=== PATIENT | female | born 1950 | race Caucasian/White ===

== ENCOUNTER → 2016-06-30 | Outpatient (CLI) | payer BC ==
[~2016-06-30] MED LIST: ADV100INH INH; HYDR25TAB PO; MULTCAP PO; PROA1AER INH; TUDO1AER2 INH; VITA-115 PO; [UNRECOGNIZED DRUG - OTHER] PO
--- NOTE | 2016-06-30 12:54 | REP ---
CT study of the chest without contrast: History: COPD. Comparison chest CT study is from May 08, 2015. Comparison PET/CT study is from November 23, 2014. Findings: Multinodular thyroid changes are again seen status quo. There are advanced emphysematous changes throughout the upper lobes. There is an area of chronic linear fibrosis in the left upper lobe without evidence of mass lesion. No hilar or mediastinal mass lesion is observed. No other pulmonary nodule or mass lesion has developed. There are moderate emphysematous changes in the lower lobes as well. No mediastinal adenopathy is seen. Ascending aorta measures 5.0 cm in greatest AP dimension, previously 4.6 cm by my measurement on May 08, 2015. Vascular calcification is seen. No other aortic dilation noted. There are several hepatic cysts again visualized unchanged. No adrenal lesion is seen. Visualized upper abdominal structures are otherwise unremarkable. No pleural or pericardial effusions seen. Impression: 1. Severe COPD. Chronic linear fibrosis left upper lobe. 2. Ascending aorta shows progressive dilation 5.0 cm today. 3. Stable hepatic cysts. 4. Stable multinodular thyroid. Signed by Salinas Stanley MD 06/30/2016 01:26 P
== END ==
LOC: M RAD 08:28
PROVIDERS: ATTEND Internal Medicine Pulmonary Disease
DX: J44.9 Chronic obstructive pulmonary disease, unspecified (principal); K76.89 Other specified diseases of liver

== ENCOUNTER → 2016-08-06 | Outpatient (CLI) | payer BC ==
[2016-08-06 10:43] LABS: BASO # 0.1 K/mm3 (0.0-0.2); BASO % 0.7 % (0.0-1.0); EOS # 0.2 K/mm3 (0.0-0.50); EOS % 2.2 % (0.0-3.0); LARGE UNSTAINED CELL # 0.3 K/mm3 (0.0-0.4); LYMPH # 2.6 K/mm3 (1.5-4.5); LYMPH % 26.8 % (24.0-44.0); MEAN CORPUSCULAR HEMOGLOBIN 32.5 pg (27.0-33.0); MEAN CORPUSCULAR HGB CONC 34.9 g/dl (32.0-36.5); MEAN CORPUSCULAR VOLUME 93.1 fl (80.0-96.0); MONO # 0.7 K/mm3 (0.0-0.8); MONO % 7.5 % (0.0-5.0); NEUTROPHILS # 5.7 K/mm3 (1.8-7.7); NEUTROPHILS % 59.9 % (36.0-66.0); PLATELET COUNT, AUTOMATED 312 k/mm3 (150-450); RED CELL DISTRIBUTION WIDTH 11.5 % (11.5-14.5); WHITE BLOOD COUNT 9.6 K/mm3 (4.0-10.0)
[2016-08-06 11:01] LABS: ALBUMIN 3.5 GM/DL (3.2-5.2); ALBUMIN/GLOBULIN RATIO 1.13 (1.00-1.93); ALKALINE PHOSPHATASE 121 U/L (45-117); ALT/SGPT 13 U/L (12-78); ANION GAP 8 MEQ/L (8-16); AST/SGOT 9 U/L (15-37); BILIRUBIN,TOTAL 0.5 MG/DL (0.2-1.0); BLOOD UREA NITROGEN 16 MG/DL (7-18); CALCIUM LEVEL 9.2 MG/DL (8.8-10.2); CARBON DIOXIDE LEVEL 31 MEQ/L (21-32); CHLORIDE LEVEL 104 MEQ/L (98-107); CHOLESTEROL LEVEL 190 MG/DL (<200); CREATININE FOR GFR 0.77 MG/DL (0.55-1.02); GLOMERULAR FILTRATION RATE > 60.0 (>45); GLUCOSE, FASTING 97 MG/DL (80-110); POTASSIUM SERUM 4.2 MEQ/L (3.5-5.1); SODIUM LEVEL 143 MEQ/L (136-145); TOTAL PROTEIN 6.6 GM/DL (6.4-8.2); TRIGLYCERIDES LEVEL 101 MG/DL (<150)
== END ==
LOC: M LAB 10:13
PROVIDERS: ATTEND Internal Medicine Cardiovascular Disease
DX: R53.83 Other fatigue (principal); R06.00 Dyspnea, unspecified; I65.29 Occlusion and stenosis of unspecified carotid artery; F17.200 Nicotine dependence, unspecified, uncomplicated; I71.2 Thoracic aortic aneurysm, without rupture

== ENCOUNTER → 2017-04-17 | Outpatient (CLI) | payer BC ==
[~2017-04-17] MED LIST changes: -PROA1AER INH; +PROAAER10 INH
--- NOTE | 2017-04-17 13:47 | REP ---
Clinical: Follow up thoracic aneurysm. Comparison: 06/30/2016, 05/08/2015. Findings: Ascending thoracic aortic aneurysm measures approximately 4.6 cm maximal transverse diameter while the descending thoracic aorta measures approximately 2.9 cm maximal diameter. Advanced atherosclerotic changes to the thoracic aorta again identified. No periaortic inflammatory stranding noted. The heart and pericardium are relatively stable and within normal limits. The bilateral lung huffman demonstrate advanced COPD and emphysematous changes with moderate to large scattered bullae with upper lung zone predominance. Area of chronic opacity and scarring in the left upper lobe remains relatively stable. A 7 mm noncalcified nodule in the right upper lobe (image 64) remains unchanged. Small noncalcified nodules in the anteromedial left upper lobe (images 62 - 72) as well as small noncalcified nodules in the periphery of the right lung (images 54 - 93) represent new findings warrant 3-6 months follow-up evaluation. No pleural effusion. No pneumothorax. No obvious adenopathy. Tracheobronchial tree demonstrates mild chronic bronchiectasis. Surrounding musculoskeletal structures demonstrate age-related degenerative changes. Impression: 1. Relatively stable appearance to the ascending thoracic aortic aneurysm and atherosclerotic changes of the aorta and major branch vessels. 2. Advanced COPD and emphysematous changes with chronic stable changes as described above. 3. New noncalcified nodules in the anteromedial left upper lobe and along the periphery of the right lung warrant 3-6 month follow-up evaluation. Signed by Vikram Pompa MD 04/17/2017 01:39 P
== END ==
LOC: M RAD 12:59
PROVIDERS: ATTEND Thoracic Surgery (Cardiothoracic Vascular Surgery)
DX: I71.2 Thoracic aortic aneurysm, without rupture (principal); J44.9 Chronic obstructive pulmonary disease, unspecified; R91.8 Other nonspecific abnormal finding of lung field

== ENCOUNTER → 2017-07-31 | Outpatient (CLI) | payer SELFPAY | LOC: M RAD 12:02 | DX: J43.1 Panlobular emphysema (principal); N28.1 Cyst of kidney, acquired | CPT/HCPCS: 71250 ==

== ENCOUNTER → 2018-03-26 | Outpatient (REF) | payer MEDICARE | LOC: M SFHCLERA 18:42 | DX: N30.01 Acute cystitis with hematuria (principal) | CPT/HCPCS: 87186 ==

== ENCOUNTER → 2018-06-18 | Outpatient (CLI) | payer MEDICARE, OTHER ==
--- NOTE | 2018-06-18 13:40 | REP ---
CT chest without contrast: History: Thoracic aortic aneurysm without rupture. Comparison CT studies are reviewed, the most recent which is from July 31, 2017. The most remote prior CT study of the chest is from November 21, 2014. Findings: There has been no change of the size or appearance of the 6 mm noncalcified pulmonary nodule seen in the right middle lobe adjacent to the fissure. This is visible on the 2014 prior study and has not progressed. This is consistent with a benign nodule. No other significant pulmonary nodule is seen. There are advanced emphysematous changes with hyperinflation of the lung huffman. The emphysematous changes are most pronounced in the upper lobes. There is a band-like area of fibrosis in the apex on the left which is unchanged from the most recent prior study. The ascending aorta is again noted to be dilated. The ascending aorta measures 5.0 cm in greatest AP dimension at the level of the main pulmonary artery on today's study. My measurement at this same level on the July 31, 2017 prior study is 4.9 cm. Transverse dimension of the ascending aorta is unchanged at 4.6 cm. Vascular calcification is noted. The descending aorta is not aneurysmal. No mediastinal mass or hematoma is seen. No pleural or pericardial effusion is observed. There are multiple small hepatic cysts again noted. Post cholecystectomy clips are noted. No adrenal lesion is seen. Impression: The ascending aorta measures 5.0 cm in greatest AP dimension today, 4.9 cm by my measurement on July 31, 2017 at this same level. Essentially unchanged. Stable right middle lobe nodule. Severe COPD. Electronically Signed by Salinas Stanley MD 06/18/2018 07:56 P
== END ==
LOC: M RAD 09:40
PROVIDERS: ATTEND Thoracic Surgery (Cardiothoracic Vascular Surgery)
DX: I71.2 Thoracic aortic aneurysm, without rupture (principal)

== ENCOUNTER → 2019-02-05 | Outpatient (CLI) | payer MEDICARE, OTHER ==
[~2019-02-05] MED LIST changes: +HYDR-2541 PO; -HYDR25TAB PO; -TUDO1AER2 INH; +TUDO1AER3 INH
[2019-02-05 12:47] LABS: FREE T3 3.8 PG/ML (2.2-4.0); FREE T4 1.28 NG/DL (0.76-1.46); THYROID STIMULATING HORMONE 0.015 uIU/ML (0.358-3.740)
== END ==
LOC: M LAB 10:08
PROVIDERS: ATTEND Internal Medicine Endocrinology, Diabetes & Metabolism
DX: E04.1 Nontoxic single thyroid nodule (principal)

== ENCOUNTER → 2019-08-03 | Outpatient (CLI) | payer MEDICARE, OTHER ==
[2019-08-03 11:47] LABS: FREE T4 1.63 NG/DL (0.76-1.46); THYROID STIMULATING HORMONE 0.017 uIU/ML (0.358-3.740)
== END ==
LOC: M LAB 09:49
PROVIDERS: ATTEND Internal Medicine Endocrinology, Diabetes & Metabolism
DX: E04.1 Nontoxic single thyroid nodule (principal)

== ENCOUNTER → 2019-09-30 | Outpatient (CLI) | payer MEDICARE, OTHER ==
--- NOTE | 2019-09-30 14:15 | REP ---
CT CHEST WITHOUT CONTRAST: Low-dose screening exam. HISTORY: Nicotine dependence. There are numerous prior chest CT studies, the most recent of which is from June 18, 2018 and the most remote of which is dated August 21, 2014. CT FINDINGS: Advanced emphysematous changes are again noted bilaterally as previously noted. There is a stable 6 mm noncalcified nodule in the distribution of the right middle lobe which is unchanged dating back to November 21, 2014. This can be considered benign. It is seen on page 60 of 113 in series 201 of today's study. No new pulmonary nodule is seen. There is a thin band of stable fibrosis in the left upper lobe where CT study from October 2014 showed pneumonia. The nodular density seen in the lingula on April 17, 2017 have resolved. On page 56 and 57 of 113 in series 201 of today's study, there is a new nodular noncalcified opacity measuring 3 mm in greatest diameter. There is a new 4 mm peribronchovascular nodule in the left lower lobe on page 64 of 113. No other new pulmonary nodule is seen. The patient is status post prior median sternotomy. The ascending aorta remains dilated and appears subjectively unchanged. Precise measurement is difficult given the technical limitations of the screening study. It appears to measure 4.7 cm in AP dimension at the level of the right main pulmonary artery. IMPRESSION: Advanced COPD and emphysematous change. Stable right middle lobe nodule. Areas of fibrosis. There are two small 3 and 4 mm noncalcified pulmonary nodules which are new in the left upper lobe and left lower lobe. Lung RADS category 2 findings. Repeat screening study recommended 1 year. Electronically Signed by Salinas Stanley MD 09/30/2019 04:16 P
== END ==
LOC: M RAD 12:13
PROVIDERS: ATTEND Internal Medicine Pulmonary Disease
DX: Z12.2 Encounter for screening for malignant neoplasm of respiratory organs (principal); F17.210 Nicotine dependence, cigarettes, uncomplicated

== ENCOUNTER → 2020-10-01 | Outpatient (CLI) | payer MEDICARE, OTHER ==
--- NOTE | 2020-10-01 11:36 | REP ---
INDICATION: NICOTINE DEPENDENCE- LABS FIRST. COMPARISON: None. TECHNIQUE: Low dose screening CT chest performed without the use of intravenous contrast. FINDINGS: Lungs: In the inferolateral aspect of the right upper lobe there is mild new peripheral patchy ill-defined parenchymal opacity. There is a stable 6 mm nodular opacity in the right upper lobe on image number 61. In the left upper lobe, on image 59, there is a 4 mm nodule again seen, previously measuring 3 mm. In the left upper lobe on image 64 there is a stable 3 mm nodule. There are stable emphysematous and fibrotic changes again noted bilaterally, with a stable linear band of fibrosis in the left upper lobe. Heart: Not enlarged. Thoracic aorta: There is ectasia of the ascending thoracic aorta, 4.3 cm in maximum diameter. There are mild atherosclerotic calcifications.. Visualized osseous structures: There are degenerative changes of the spine. There are multiple sternal wires present. IMPRESSION: New mild ill-defined patchy parenchymal opacity inferolateral right upper lobe, most likely representing inflammatory change. Recommend follow-up CT in 3 months. Stable 6 mm nodular opacity right upper lobe. Left upper lobe 4 mm nodule and 3 mm nodule essentially unchanged. <Electronically signed by Mayito Gomez > 10/01/20 [id number]
== END ==
LOC: M RAD 10:10
PROVIDERS: ATTEND Internal Medicine Pulmonary Disease
DX: Z12.2 Encounter for screening for malignant neoplasm of respiratory organs (principal); F17.210 Nicotine dependence, cigarettes, uncomplicated; E04.1 Nontoxic single thyroid nodule; R91.8 Other nonspecific abnormal finding of lung field

== ENCOUNTER → 2020-10-01 | Outpatient (CLI) | payer MEDICARE, OTHER ==
[2020-10-01 12:15] LABS: FREE T4 1.02 NG/DL (0.76-1.46); THYROID STIMULATING HORMONE 0.653 uIU/ML (0.358-3.740)
== END ==
LOC: M LAB 10:12
PROVIDERS: ATTEND Internal Medicine Endocrinology, Diabetes & Metabolism
DX: E04.1 Nontoxic single thyroid nodule (principal)

== ENCOUNTER → 2021-01-16 | Outpatient (CLI) | payer MEDICARE, OTHER ==
--- NOTE | 2021-01-16 10:34 | REP ---
INDICATION: ABN FINDING OF LUNG COMPARISON: Multiple examinations dating through 05/08/2015 TECHNIQUE: Axial noncontrast images from the thoracic inlet to the upper abdomen with coronal and sagittal reformations. This CT examination was performed using the following dose reduction techniques: Automated exposure control, adjustment of mA and/or kv according to the patient's size, and use of iterative reconstruction technique. FINDINGS: While COPD and scattered fibrotic changes along with small scattered nodules appeared stable through 10/01/2020, there now appears to be considerable increased ill-defined linear changes, scarring and opacity involving the left upper lobe extending towards the left suprahilar region (series 201; images 12-40) as well as new area of presumed scarring along the peripheral aspect of the right major fissure (series 201; images 48-58). No effusion. No pneumothorax. Tracheobronchial tree is relatively patent. Significant atherosclerotic changes to the thoracic aorta and coronary arteries with mild thoracic aortic aneurysmal dilatation measuring roughly up to 5 cm maximal diameter again noted. No cardiomegaly or pericardial effusion. No obvious adenopathy. Musculoskeletal structures demonstrate degenerative changes without acute process. IMPRESSION: 1. New increased area of linear changes and ill-defined opacities in the left upper lung zone may represent progressive chronic scarring possibly related to recent pulmonary process. Malignancy less likely cannot be excluded. Consider short-term 3 month follow-up examination. 2. Remainder of the examination demonstrates stable chronic changes including COPD/emphysematous disease and scattered stable scarring/nodules. <Electronically signed by Vikram Pompa > 01/16/21 [id number]
== END ==
LOC: M RAD 09:19
PROVIDERS: ATTEND Internal Medicine Pulmonary Disease
DX: R91.8 Other nonspecific abnormal finding of lung field (principal)

== ENCOUNTER → 2021-04-10 | Outpatient (CLI) | payer MEDICARE, OTHER ==
--- NOTE | 2021-04-10 12:04 | REP ---
INDICATION: THORACIC AAA COMPARISON: Multiple the latest 01/16/2021 a noncontrast enhanced exam TECHNIQUE: Standard helical technique without contrast FINDINGS: Mediastinum and pulmonary cherie appear stable. The ascending thoracic aorta measures 4.7 cm outer wall to outer wall status quo. There are no pleural or pericardial effusions. There is no change in the imaged upper abdomen or imaged osseous structures. Evaluation of the lung huffman shows a thick stable appearing band like opacity in the left upper lobe with air bronchograms. The anterior peripheral asymmetric component of this seen on the prior exam has improved. It is smaller and much less dense. There are advanced emphysematous changes with parenchymal bulla and pleural blebs status quo. No new abnormal lung field opacities have developed. IMPRESSION: 1. Improved left upper lobe opacity as described above. 2. Other chronic changes as described above. <Electronically signed by Govind Foster > 04/10/21 1200
== END ==
LOC: M RAD 10:50
PROVIDERS: ATTEND Thoracic Surgery (Cardiothoracic Vascular Surgery)
DX: I71.2 Thoracic aortic aneurysm, without rupture (principal); R91.1 Solitary pulmonary nodule

== ENCOUNTER → 2021-06-10 | Outpatient (CLI) | payer MEDICARE, OTHER | LOC: M PLARAD 12:05 | PROVIDERS: ATTEND Internal Medicine Pulmonary Disease | DX: R91.8 Other nonspecific abnormal finding of lung field (principal); Z90.2 Acquired absence of lung [part of] | CPT/HCPCS: 78815; A9552 ==

== ENCOUNTER → 2021-12-09 | Outpatient (CLI) | payer MEDICARE, OTHER ==
[~2021-12-09] MED LIST changes: +TUDO1AER2 INH; -TUDO1AER3 INH
== END ==
LOC: M RAD 08:00
PROVIDERS: ATTEND Internal Medicine Pulmonary Disease
DX: R91.8 Other nonspecific abnormal finding of lung field (principal)

== ENCOUNTER → 2022-12-09 | Outpatient (CLI) | payer MEDICARE, OTHER | LOC: M RAD 13:05 | PROVIDERS: ATTEND Thoracic Surgery (Cardiothoracic Vascular Surgery) | DX: I71.20 Thoracic aortic aneurysm, without rupture, unspecified (principal) ==

== ENCOUNTER → 2023-03-06 | Outpatient (CLI) | payer MEDICARE, OTHER | LOC: M WHC 12:55 | PROVIDERS: ATTEND Physician Assistant | DX: I65.23 Occlusion and stenosis of bilateral carotid arteries (principal) ==

== ENCOUNTER 2023-08-28 10:26 | Day surgery (SDC) | payer MEDICARE, OTHER ==
[~2023-08-28] VITALS: Ht 172.7 cm; Wt 59.9 kg
[~2023-08-28 10:26] MED LIST changes: +D3 S20002 PO; +ECOT81TA5 PO; +FLUT1BLS17; +HYDR-3490 PO; +LORA-1041 PO; +MAGN400C2 PO; +METH25TAB PO; +NS 1,000 ML IV ONE; +SIMV20TA22 PO; +THERTAB52 PO
[2023-08-28] MEDS ORDERED: GLYCOPYRROLATE INJ 0.2 MG/ML 2 ML VIAL As Ordered ONE (12:24)
[2023-08-28] MEDS ORDERED: propofoL 200 MG/20 ML VIAL As Ordered ONE (12:32)
[2023-08-28] MEDS ORDERED: LIDOCAINE 2% 100MG/5ML SDV (FOR ANES.) As Ordered ONE (12:32)
[2023-08-28 13:24] VITALS: BP 105/80; TEMP 97.5; O2SAT 97
== END 2023-08-28 13:23 | disposition home or self-care (01) ==
LOC: M OPP 10:26
PROVIDERS: ATTEND Internal Medicine Gastroenterology
DX: Z86.010 Personal history of colon polyps (principal); Z80.0 Family history of malignant neoplasm of digestive organs; D12.0 Benign neoplasm of cecum; D12.2 Benign neoplasm of ascending colon; K57.30 Diverticulosis of large intestine without perforation or abscess without bleeding; F17.200 Nicotine dependence, unspecified, uncomplicated; I25.10 Atherosclerotic heart disease of native coronary artery without angina pectoris; Z79.02 Long term (current) use of antithrombotics/antiplatelets; Z79.51 Long term (current) use of inhaled steroids; Z79.82 Long term (current) use of aspirin; Z79.890 Hormone replacement therapy; Z79.899 Other long term (current) drug therapy; Z88.0 Allergy status to penicillin; Z88.1 Allergy status to other antibiotic agents; Z88.2 Allergy status to sulfonamides; Z88.5 Allergy status to narcotic agent

== ENCOUNTER → 2023-10-22 | Outpatient (CLI) | payer MEDICARE, OTHER ==
[~2023-10-22] MED LIST changes: -NS 1,000 ML IV ONE
== END ==
LOC: M PLALAB 11:10 → M PLAIMG 11:10
PROVIDERS: ATTEND Internal Medicine Pulmonary Disease
DX: J43.1 Panlobular emphysema (principal)

== ENCOUNTER → 2024-01-27 | Outpatient (CLI) | payer MEDICARE, OTHER | LOC: M PLAIMG 10:25 | PROVIDERS: ATTEND Internal Medicine Pulmonary Disease | DX: J43.1 Panlobular emphysema (principal) ==

== ENCOUNTER → 2024-05-16 | Outpatient (CLI) | payer MEDICARE, OTHER ==
[~2024-05-16] MED LIST changes: -ADV100INH INH; +ADVA1AER8 INH; +METH-1386 PO; -METH25TAB PO
== END ==
LOC: M PLAIMG 12:57
PROVIDERS: ATTEND Internal Medicine Pulmonary Disease
DX: R91.8 Other nonspecific abnormal finding of lung field (principal); I77.812 Thoracoabdominal aortic ectasia

== ENCOUNTER → 2024-06-09 | Outpatient (CLI) | payer MEDICARE, OTHER ==
[2024-06-09 16:30] LABS: FREE T4 0.99 NG/DL (0.89-1.76); THYROID STIMULATING HORMONE 3.611 uIU/ML (0.55-4.78)
== END ==
LOC: M PLALAB 13:42
PROVIDERS: ATTEND Nurse Practitioner Family
DX: E04.1 Nontoxic single thyroid nodule (principal)

== ENCOUNTER 2024-08-29 08:50 | Day surgery (SDC) | payer MEDICARE, OTHER ==
[~2024-08-29] VITALS: Ht 170.2 cm; Wt 70.3 kg
[~2024-08-29 08:50] MED LIST changes: -FLUT1BLS17; +FLUT1BLS17 INH
[2024-08-29] MEDS ORDERED: GLYCOPYRROLATE INJ 0.2 MG/ML 2 ML VIAL As Ordered ONE (10:10)
[2024-08-29] MEDS ORDERED: LIDOCAINE 2% 100MG/5ML SDV (FOR ANES.) As Ordered ONE (10:10)
[2024-08-29] MEDS ORDERED: propofoL 200 MG/20 ML VIAL As Ordered ONE (10:10)
[2024-08-29 10:39] VITALS: TEMP 97.1
[2024-08-29 11:00] VITALS: BP 104/67; O2SAT 96
== END 2024-08-29 11:05 | disposition home or self-care (01) ==
LOC: M OPP 08:50
PROVIDERS: ATTEND Internal Medicine Gastroenterology
DX: D12.4 Benign neoplasm of descending colon (principal); K57.30 Diverticulosis of large intestine without perforation or abscess without bleeding; K64.8 Other hemorrhoids; Z86.0100 Personal history of colon polyps, unspecified; Z80.0 Family history of malignant neoplasm of digestive organs; Z88.0 Allergy status to penicillin; Z88.1 Allergy status to other antibiotic agents; Z88.2 Allergy status to sulfonamides; Z88.5 Allergy status to narcotic agent; Z79.82 Long term (current) use of aspirin; Z79.51 Long term (current) use of inhaled steroids; Z79.899 Other long term (current) drug therapy; J44.9 Chronic obstructive pulmonary disease, unspecified; Z99.81 Dependence on supplemental oxygen; F17.210 Nicotine dependence, cigarettes, uncomplicated
CPT/HCPCS: 45380; 45385; 88305; J1596

== ENCOUNTER → 2024-12-21 | Outpatient (CLI) | payer MEDICARE, OTHER ==
[2024-12-21 15:30] LABS: FREE T4 1.32 NG/DL (0.89-1.76)
== END ==
LOC: M PLALAB 12:43
PROVIDERS: ATTEND Internal Medicine Endocrinology, Diabetes & Metabolism
DX: E04.1 Nontoxic single thyroid nodule (principal)

== ENCOUNTER → 2025-01-05 | Outpatient (CLI) | payer MEDICARE, OTHER | LOC: M PLAIMG 10:28 | PROVIDERS: ATTEND Internal Medicine Pulmonary Disease | DX: R91.8 Other nonspecific abnormal finding of lung field (principal); J43.2 Centrilobular emphysema; J84.10 Pulmonary fibrosis, unspecified; Z95.1 Presence of aortocoronary bypass graft; K76.89 Other specified diseases of liver; I77.810 Thoracic aortic ectasia ==